=== PATIENT | male | born 1965 | race Caucasian/White ===

== ENCOUNTER 2016-08-01 15:53 | Emergency (ER) | payer OTHER ==
[2016-08-01 16:01] VITALS: BP 136/81; PULSE 85; TEMP 98.1; BMI 32.3
--- NOTE | 2016-08-01 16:38 | PDOC ---
History of Present Illness - General Chief Complaint: Injury Stated Complaint: FALL/ SWOLLEN LT ARM Time Seen by Provider: 08/01/16 16:16 History Source: Patient Exam Limitations: No Limitations - History of Present Illness Initial Comments: 08/01/16 17:15 My Chief Complaint: left elbow, forearm swelling with bruising History of present illness: Patient is a 51-year-old male with no significant medical history here today due to having swelling lateral to left elbow with slight swelling of his forearm with bruising noted radiating from the proximal forearm to wrist since falling out of the cab on 07/27/2016 and hitting something was made of metal with his left arm. Patient reports that area is not severely tender but was concerned about the bruising of area. Patient last took something for pain last night. Patient denies any numbness of his left arm or shoulder or hand or wrist area. 08/01/16 18:11 Occurred: reports: other (07/27/16) Severity: reports: mild (left lateral elbow area) Pain Location: reports: upper extremity (left lateral elbow edema, forearm/ wrist bruising noted ) Method of Injury: Yes: fall Modifying Factors: improves with: None Loss of Consciousness: no loss of consciousness Associated Symptoms (Fall): other (bruising left medial forearm to wrist, left dorsal hand slight erythema noted, no edema) Past History - Past Medical History Allergies/Adverse Reactions: Allergies Allergy/AdvReac Type Severity Reaction Status Date / Time No Known Allergies Allergy Verified 08/01/16 15:58 - Psycho/Social/Smoking Cessation Hx Anxiety: No Suicidal Ideation: No Smoking History: Never smoked Have you smoked in the past 12 months: No Information on smoking cessation initiated: No Hx Alcohol Use: No Drug/Substance Use Hx: No Substance Use Type: Alcohol Review of Systems - Review of Systems Able to Perform ROS?: Yes Constitutional: No: Symptoms Reported HEENTM: No: Symptoms Reported Respiratory: No: Symptoms reported Cardiac (ROS): No: Symptoms Reported ABD/GI: No: Symptoms Reported : No: Symptoms Reported Musculoskeletal: Yes: Joint Pain (left lateral elbow area), Joint Swelling ( left lateral elbow raised) Integumentary: Yes: Bruising (left medial forearm to wrist, ), Erythema (left dorsal hand), Other (raised area left lateral elbow) *Physical Exam - Vital Signs Last Vital Signs Temp Pulse Resp BP Pulse Ox 98.1 F 85 18 136/81 97 08/01/16 15:58 08/01/16 15:58 08/01/16 15:58 08/01/16 15:58 08/01/16 15:58 - Physical Exam General Appearance: Yes: Appropriately Dressed Comments:: 08/01/16 18:04 radial pulse left 4 + Extremity: positive: Normal Capillary Refill, Normal Range of Motion (left shoulder, left elbow, left wrist, left hand all digits), Tender (left lateral elbow raised area approx 3 cm diameter), Cyanosis (left medial forearm to left wrist ), Swelling (left lateral elbow raised area approx 3 cm diameter). negative: Normal Inspection Integumentary: positive: Erythema (left hand ) Neurologic: positive: Normal Response, Respond to painful stimul (left forearm, wrist, hand ), Responsive. negative: Numbness, Sensory Deficit (left arm ) Medical Decision Making - Medical Decision Making 08/01/16 17:17 Patient is a 51-year-old male with no significant medical history here today due to having swelling lateral to left elbow with slight swelling of his forearm with bruising noted radiating from the proximal forearm to wrist since falling out of the cab on 07/27/2016 and hitting something was made of metal with his left arm. Patient reports that area is not severely tender but was concerned about the bruising of area. Patient last took something for pain last night. Patient denies any numbness of his left arm or shoulder or hand or wrist area. r/o fracture left elbow r/o fracture left humerous ro fracture left forearm r/o fracture left wrist/hand Fall Contusion left elbow contusion left forearm contusion left wrist PLAN: xray left humerous no fracture Dr. Gordillo xray left elbow no fracture Dr. Gordillo xray left forearm no fracture Dr. Gordillo xary left wrist/hand no fracture Dr. Gordillo ibuprofen 600 mg follow up with ortho 08/01/16 17:19 08/01/16 18:11 *DC/Admit/Observation/Transfer Diagnosis at time of Disposition: Contusion of left elbow and forearm Qualifiers: Encounter type: initial encounter Qualified Code(s): S50.12XA - Contusion of left forearm, initial encounter Contusion of left wrist Qualifiers: Encounter type: initial encounter Qualified Code(s): S60.212A - Contusion of left wrist, initial encounter - Discharge Dispostion Disposition: HOME Condition at time of disposition: Stable - Referrals Referrals: Kameron Owusu MD [Staff Physician] - - Patient Instructions Additional Instructions: Follow-up with orthopedist if pain continues and your left arm Avoid any strenuous activities or exercise until pain and swelling resolved and your left arm Take 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
[2016-08-01] MEDS ORDERED: IBUPROFEN 600 MG TABLET (FP) PO ONE ×2 (17:00→17:09)
== END 2016-08-01 18:24 | disposition home or self-care (01) ==
LOC: JERFT 15:53
DX: S60.212A Contusion of left wrist, initial encounter (principal); S50.12XA Contusion of left forearm, initial encounter; V87.8XXA Person injured in other specified noncollision transport accidents involving motor vehicle (traffic), initial encounter; Y93.89 Activity, other specified; Y92.410 Unspecified street and highway as the place of occurrence of the external cause
CPT/HCPCS: 73060-TC-LT; 73070-TC-LT; 73090-TC-LT; 73110-TC-LT; 73130-TC-LT; 99281-25